=== PATIENT | male | born 1990 | race Caucasian/White ===

== ENCOUNTER 2019-12-31 16:15 | Emergency (ER) | payer OTHER ==
[~2019-12-31] VITALS: Ht 193 cm; Wt 140.9 kg
[2019-12-31 16:24] VITALS: TEMP 98.5
[2019-12-31] MEDS ORDERED: NORCO 325 MG-51 TAB PO (16:32)
[2019-12-31] MEDS ORDERED: PRILOSEC10 MG PO (16:32)
[2019-12-31 17:10] LABS: BASO % 0.4 % (0.0-2.0); EOS # 0.1 (0.0-0.7); EOS % 0.4 % (0-4.0); GRAN # 8.5 (1.4-6.5); HEMOGLOBIN 16.5 g/dl (13.5-18.0); LYMPH # 2.1 (1.2-3.4); LYMPH % 18.3 % (20.0-51.0); MEAN CELL VOLUME 84 fl (80.0-100.0); MEAN CORPUSCULAR HEMOGLOBIN 30 pg (27.0-31.0); MEAN CORPUSCULAR HGB CONC 36 g/dl (33.0-37.0); MEAN PLATELET VOLUME 9.9 fl (7.4-10.4); MONO # 0.6 (0.1-0.6); MONO % 5.5 % (1.7-9.3); PLATELET COUNT 270 K/mm3 (130-400); RED BLOOD COUNT 5.49 M/mm3 (4.20-5.60); REDCELL DISTRIBUTION WIDTH-CV 12.5 % (11.5-14.5)
[2019-12-31 17:19] LABS: COLLECTION METHOD CLEAN CATCH
[2019-12-31 17:22] LABS: ALBUMIN 4.7 gm/dL (3.5-5.0); BILIRUBIN,TOTAL 0.9 mg/dL (0.0-1.0); C-REACTIVE PROTEIN 0.7 mg/dL (0.0-0.9); CALCIUM 9.3 mg/dL (8.4-10.2); CREATININE, serum 0.79 (0.66-1.25); POTASSIUM 3.7 mmol/L (3.4-5.0); TOTAL PROTEIN 7.6 gm/dL (6.4-8.2)
[2019-12-31 17:25] LABS: MUCOUS Present /lpf; PH 5 (5-8); SQUAMOUS EPITHELIAL 0-2 /hpf; URINE APPEARANCE Clear; URINE BACTERIA None Seen /hpf; URINE BILIRUBIN Negative (NEGATIVE); URINE BLOOD Negative (NEGATIVE); URINE COLOR Yellow; URINE GLUCOSE Negative (NEGATIVE); URINE KETONE Trace (NEGATIVE); URINE LEUKOCYTE ESTERASE Negative (NEGATIVE); URINE NITRATE Negative (NEGATIVE); URINE PROTEIN(semi-quant) 2+ (NEGATIVE); URINE RBC 0-2 /hpf; URINE UROBILINOGEN Negative (NEGATIVE)
[2019-12-31 19:40] VITALS: BP 135/86; PULSE 89
== END 2019-12-31 19:42 | disposition home or self-care (01) ==
LOC: COL.ER 16:15
PROVIDERS: Nurse Practitioner Primary Care
DX: K52.9 Noninfective gastroenteritis and colitis, unspecified (principal); Z88.1 Allergy status to other antibiotic agents
CPT/HCPCS: J1885; J2405; J7030

== ENCOUNTER 2020-04-02 14:14 | Outpatient (CLI) | payer OTHER ==
[~2020-04-02] VITALS: Ht 193 cm; Wt 127.2 kg
[2020-04-02] VITALS (7 sets, daily range): BP systolic 116–131; BP diastolic 83–92; PULSE 81–89; TEMP 98.6–99
[~2020-04-02 14:14] MED LIST: NORCO 325 MG-51 TAB PO; PRILOSEC10 MG PO
--- NOTE | 2020-04-02 15:35 | NUR ---
Pt tolerated BAM infusion without issue. He was monitored for 1 hr following infusion. INT DC'd with catheter intact. He was escorted out to ED entrance with steady gait.
== END 2020-04-02 16:00 | disposition home or self-care (01) ==
LOC: EUO 14:14
DX: U07.1 COVID-19 (principal); Z68.35 Body mass index [BMI] 35.0-35.9, adult